=== PATIENT | female | born 1955 | race Caucasian/White ===

== ENCOUNTER 2017-01-26 13:47 | Outpatient (CLI) | payer BC ==
--- NOTE | 2017-01-26 17:39 | OP Clinic Progress Note ---
REASON FOR VISIT: Dalia Sepulveda returns for follow up of Adebayo's vasculitis. She is seeing me here in [place] due to the urgency of the matter. HISTORY OF PRESENT ILLNESS: Dalia Sepulveda is a 61-year-old white woman that I have been following since 2000. She has biopsy-proven Adebayo's vasculitis. She previously had been seen by Dr. Rojas, Dr. Owen, Dr. Sean Albert, and Dr. Huddleston. Having failed methotrexate and prednisone therapy in the past, she has received Rituxan with good resolution of her symptoms. Her last treatment was a year ago. About a week ago, the patient noticed worsening pain and swelling of her feet, an itchy skin rash, a cough productive of blood-streaked sputum, and worsening sinus congestion. She passed by my office and I put her on 30 mg of prednisone and obtained some labs. On today's visit, she tells me she is feeling somewhat improved on the prednisone. Her rash has resolved. Her foot pain is improving. She has stopped coughing up blood. Her sinuses, however, remain full with associated symptoms of fatigue and numbness and tingling of the extremities, which have been present for many years. PAST MEDICAL HISTORY: 1. Low back pain. 2. Hypertension. 3. Peripheral neuropathy. 4. Anemia. ALLERGIES: She reports allergies to: 1. Penicillin. 2. Sulfa drugs. 3. Nubain. PAST SURGICAL HISTORY: 1. Tubal ligation. 2. Lung biopsy. FAMILY HISTORY: Positive for rheumatoid arthritis. PHYSICAL EXAMINATION: General: She is in no acute distress. VITAL SIGNS: Weight: 156. Height: 5 feet 8 inches. T: 97.5, R: 18, heart rate 70, BP: 110/70. HEENT: External ears and nose are unremarkable. Sclerae are anicteric. Conjunctivae are pink. LUNGS: Clear bilaterally with no crackles or wheezing or rubs. HEART: Regular rhythm. ABDOMEN: Soft and nontender. EXTREMITIES: No significant peripheral edema of the lower extremities. SKIN: No purpura. JOINTS: No synovitis in her right or left upper extremities DIAGNOSTIC STUDIES: Labs obtained January 25, sedimentation was , antiproteinase 3 was positive over 5.9. Creatinine was 0.89. Liver functions were normal. CBC, white count was 5.5, hemoglobin 15.3, platelets are normal. Mild eosinophilia with absolute eosinophil count of 0.63. Urine showed 1+ protein and 1+ blood and negative leukocyte esterase. IMPRESSION: Adebayo's vasculitis, active with sinus, pulmonary, renal, and cutaneous involvement. We will continue prednisone 30 mg daily. We will treat with Rituxan 1 gram x2. I have asked her to contact me in 7 days after her first treatment. Thank you very much. Best regards, FLAKO
== END 2017-01-26 13:57 ==
LOC: RHEU 13:47
PROVIDERS: ATTEND Internal Medicine
DX: M31.30 Wegener's granulomatosis without renal involvement (principal)
CPT/HCPCS: 99213; 99214

== ENCOUNTER → 2017-03-30 | Outpatient (CLI) | payer BC ==
--- NOTE | 2017-03-30 13:13 | OP Clinic Progress Note ---
REASON FOR VISIT: Dalia Sepulveda returns for follow up on her Adebayo's syndrome (ICD 10, M31.30). This lady has biopsy-proven Adebayo's vasculitis with involvement of her sinuses , lungs, skin, and kidneys. She is presently on 30 mg of prednisone. She received Rituxan 1000 mg x2 at [facility] and feels significantly better. She presently has had no fevers or chills. No skin lesions. No swelling of her legs. She has no sinus drainage or pain. She is no longer coughing blood, and she has had no chest pain or shortness of breath. Furthermore, no nausea, vomiting, or diarrhea. She does feel a little anxious on the 30 mg of prednisone. PAST MEDICAL HISTORY: As above, as well as: 1. Chronic low back pain. 2. Hypertension. 3. Peripheral neuropathy. 4. Anemia. PAST SURGICAL HISTORY: 1. Lung biopsy. 2. Tubal ligation. ALLERGIES: She is allergic to: 1. Penicillin. 2. Sulfa drugs. 3. Nubain. FAMILY HISTORY: Positive for rheumatoid arthritis. PHYSICAL EXAMINATION: GENERAL: On exam, she looks well. VITAL SIGNS: Weight: 160 pounds. T: 97.5, R: 20, heart rate of 80, BP: 128/ 76. HEENT: Sclerae are anicteric. Conjunctivae are pink. No stomatitis or glossitis. LUNGS: Clear. HEART: Regular rhythm. ABDOMEN: Soft and nontender. VASCULAR: No edema or cyanosis. PERIPHERAL JOINTS: No synovitis at the DIPs, PIPs, MCPs, wrists, elbows, shoulders, hips, knees, ankles, and feet. SKIN: No rashes. No pitting edema. IMPRESSION: Adebayo's vasculitis, stable and improved. Decrease prednisone to 20 mg daily. PLAN: I will see her back in a month. We will check her labs at that time. Thank you very much. FLAKO
== END ==
LOC: RHEU 10:24
PROVIDERS: ATTEND Internal Medicine
DX: M31.30 Wegener's granulomatosis without renal involvement (principal); Z79.899 Other long term (current) drug therapy
CPT/HCPCS: 99213; 99214

== ENCOUNTER 2017-04-27 15:06 | Outpatient (CLI) | payer BC ==
--- NOTE | 2017-05-01 10:21 | OP Clinic Progress Note ---
REASON FOR VISIT: Dalia Sepulveda returns for follow up on her Adebayo's Syndrome (M31.30). She is presently on 20 mg of prednisone and doing well. She has had no sinus bleeding but just a little congestion. She is breathing well with no chest pain and no coughing up of blood. Her urine remains unchanged. PAST MEDICAL HISTORY: 1. Adebayo's Vasculitis with sinus, lungs, skin, and renal disease. 2. Chronic intractable low back pain. 3. Hypertension. 4. Peripheral neuropathy. 5. Anemia. 6. Lung biopsy. 7. Tubal ligation. ALLERGIES: 1. Penicillin. 2. Sulfa drugs. 3. Nubain. REVIEW OF SYSTEMS: She has had no fevers or chills but she has had a rash on the right nasolabial fold. It is itchy. She has been putting some topical steroids on it. It has extended down to the right side of her mouth and she has a little burning sensation at her left frontal scalp with some small lesions. They have been present for about a month. PHYSICAL EXAMINATION: General: On exam, she always looks well and in no distress. Vital Signs: Weight: 163. T: 96.6, R: 20, heart rate 76, BP: 130/74. HEENT: Conjunctivae are pink. No stomatitis or glossitis. She has an acneiform eruption on right nasolabial fold and a little bit on the forehead and chin. Neck: No cervical nodes. Lungs: Clear with no crackles or wheezing. Heart: Regular rhythm. Abdomen: Soft. Skin: The rest of the skin exam is unremarkable. Vascular: No edema or cyanosis. Joints: Joints are unremarkable. IMPRESSION: 1. Adebayo's vasculitis, improved. 2. Steroid-induced acne. PLAN: 1. I am decreasing her prednisone to 10 mg daily for a month and then 5 mg a day. 2. Today, we will recheck her labs including ANCA's, urinalysis, CBC, CMP, and sedimentation rate. 3. I am putting the patient on doxycycline 100 mg twice a day for 7 days. She will call sooner if she does not improve. May need a consultation with Dermatology. 4. I will see her back in 2 months. Thank you very much. Best regards, FLAKO
== END 2017-04-27 15:07 ==
LOC: RHEU 15:06
PROVIDERS: ATTEND Internal Medicine
DX: M31.30 Wegener's granulomatosis without renal involvement (principal)
CPT/HCPCS: 99213

== ENCOUNTER 2017-04-30 10:39 | Outpatient (CLI) | payer BC ==
[2017-04-30 11:04] LABS: BASOPHILS % 1.1 (0.0-1.5); EOSINOPHILS % 5.3 % (0.0-6.8); MEAN CORPUSCULAR HEMOGLOBIN 29.7 pg (28.0-34.0); MEAN CORPUSCULAR VOLUME 94.2 fl (80.0-100.0); MONOCYTES % 10.7 % (0.0-11.0); NEUTROPHILS # 4.6 # k/uL (1.4-7.7)
[2017-04-30 11:11] LABS: APPEARANCE,URINE Clear (CLEAR); COLOR,URINE Yellow (YELLOW); OCCULT BLOOD,URINE Negative (NEGATIVE); UROBILINOGEN URINE 0.2 Eu (0.2-1.0)
[2017-04-30 11:52] LABS: eGFR (African) > 60; eGFR (Non-African) > 60
== END 2017-04-30 10:40 ==
LOC: LAB 10:39
PROVIDERS: ATTEND Internal Medicine
DX: M31.30 Wegener's granulomatosis without renal involvement (principal)
CPT/HCPCS: 36415; 80053; 81002; 83516; 85025; 85651

== ENCOUNTER 2017-12-28 08:45 | Outpatient (CLI) | payer BC ==
[2017-12-28 10:04] LABS: BASOPHILS % 0.8 (0.0-1.5); EOSINOPHILS % 18.7 % (0.0-6.8); MEAN CORPUSCULAR HEMOGLOBIN 30.4 pg (28.0-34.0); MEAN CORPUSCULAR VOLUME 90.6 fl (80.0-100.0); MONOCYTES % 6.3 % (0.0-11.0)
[2017-12-28 10:14] LABS: APPEARANCE,URINE CLEAR (CLEAR); COLOR,URINE YELLOW (YELLOW); OCCULT BLOOD,URINE TRACE-INTACT (NEGATIVE); PH URINE 7.5 (5.0 - 8.0); UROBILINOGEN URINE 0.2 Eu (0.2-1.0)
[2017-12-28 10:15] LABS: eGFR (African) > 60; eGFR (Non-African) > 60
--- NOTE | 2017-12-28 10:30 | OP Clinic Progress Note ---
REASON FOR VISIT: Dalia Sepulveda was last seen in April 2017. She has Adebayo's syndrome (M31.30 ). For the past week, she has felt ill with increasing fatigue, joint pain, and she has developed mouth sores and some swelling of her legs and she is coughing up pinkish sputum. Otherwise, no fever. She has had no chest pain. She has no shortness of breath. No nausea vomiting, or diarrhea. No numbness or tingling of her extremities. She has not noted any change in her urine. PAST MEDICAL HISTORY: 1. Adebayo's vasculitis with sinus, lungs, skin and renal disease. Previous treatment with Rituxan. 2. Chronic intractable low back pain. 3. Hypertension. 4. Peripheral neuropathy. 5. Anemia. 6. Tubal ligation. 7. Past lung biopsy. ALLERGIES: 1. Penicillin. 2. Sulfa drugs. 3. Nubain. REVIEW OF SYSTEMS: As above. PHYSICAL EXAMINATION: GENERAL: She looks ill. VITAL SIGNS: Height: 5 feet 8 inches. Weight: 179 pounds. T: 97.2, R: 20 , heart rate 83, BP: 120/85. HEENT: External ears and nose are unremarkable. She has stomatitis. No gingivitis. Good salivary pool. No parotid or submandibular swelling. LYMPHATIC: No submental nodes. No cervical nodes. LUNGS: Clear with no crackles or wheezing. HEART: Regular rate and rhythm. ABDOMEN: Soft and nontender. VASCULAR: No edema. No cyanosis. SKIN: No rashes. EXTREMITIES: She has no calf tenderness. Negative David's bilaterally. JOINTS: No synovitis of the hands, wrists, or legs. IMPRESSION: 1. Hemoptysis. 2. Cough. 3. Adebayo's vasculitis, active. PLAN: 1. I am putting her on 30 mg daily of prednisone. 2. I am checking her labs including ANCA's, urinalysis, CBC, CMP, and sedimentation rate. 3. We will get a chest x-ray today. 4. She will contact me on Sunday. I gave her my cell number. 5. Depending on the above results, we will retreat with Rituxan 1 gram day zero, 7, 14, and 21. Thank you very much. cc: Dr. Huang ARRIOLA
--- NOTE | 2017-12-28 20:28 | Diagnostic Imaging Report ---
NIVIA RANDLE [facility] [address] [facility] [address] [place], [place]. [address] Report Submission Date: Dec 28, 2017 9:59:49 AM CDT Patient Study Name: LARRY AMEZQUITA Date: Dec 28, 2017 9:38:17 AM CDT Modality Type: DX Gender: F Description: CHEST : 51 Institution: [facility] Physician: NIVIA RANDLE PA and lateral chest History: Adebayo's granulomatosis. Cough PA and lateral chest dated December 28, 2017 demonstrates a normal cardiomediastinal silhouette. There is mild aortic atherosclerosis. Pulmonary vascularity is normal. There is no confluent infiltrate or pleural effusion. Impression: No active disease. Electronically signed on Dec 28, 2017 9:59:49 AM CDT by: Genesis ARRIOLA
== END 2017-12-28 12:30 ==
LOC: RHEU 08:45
PROVIDERS: ATTEND Internal Medicine
DX: R04.2 Hemoptysis (principal); R05 Cough; M31.31 Wegener's granulomatosis with renal involvement
CPT/HCPCS: 36415; 71046; 80053; 81002; 85025; 85651; 99213; 99214

== ENCOUNTER 2018-01-01 09:17 | Outpatient (CLI) | payer BC ==
--- NOTE | 2018-01-01 17:13 | Diagnostic Imaging Report ---
NIVIA RANDLE [facility] [address] [facility] [address] [place] [id number]. [id number] Report Submission Date: Jan 01, 2018 4:53:10 PM CDT Patient Study Name: LARRY AMEZQUITA Date: Jan 01, 2018 3:39:20 PM CDT Modality Type: CT\SR Gender: F Description: CT PE CHEST : 51 Institution: [facility] Physician: NIVIA RANDLE CT pulmonary angiography Clinical history: Chest pain and hemoptysis. Rule out pulmonary embolus. Technique: CT pulmonary angiography is performed with intravenous infusion of contrast. Sliding coronal and sagittal MIP reconstructions were performed by the technologist. Findings: There are patchy infiltrates in both lower lobes, right middle lobe and lingula. There is relative sparing of the upper lobes. Central airways are patent. There is no pleural effusion or significant pleural thickening. Vascular structures enhance normally. There is no filling defect in the pulmonary arteries or vascular cut off to suggest the diagnosis of pulmonary embolism. Impression: 1. No pulmonary embolus. 2. Patchy bilateral infiltrates worse in the lower lobes. Electronically signed on Jan 01, 2018 4:53:10 PM CDT by: Yevgeniy ARRIOLA
== END 2018-01-01 09:19 ==
LOC: RAD 09:17
PROVIDERS: ATTEND Internal Medicine
DX: R04.2 Hemoptysis (principal)
CPT/HCPCS: 71275

== ENCOUNTER 2018-02-28 09:38 | Outpatient (CLI) | payer OTHER | END 2018-02-28 09:40 | LOC: RT 09:38 | PROVIDERS: ATTEND Family Medicine | DX: R07.9 Chest pain, unspecified (principal) ==

== ENCOUNTER 2018-04-15 09:41 | Outpatient (CLI) | payer MEDICARE, OTHER ==
[2018-04-15 10:01] LABS: MEAN CORPUSCULAR HEMOGLOBIN 30.2 pg (28.0-34.0)
[2018-04-15 10:02] LABS: BASOPHILS % 0.4 (0.0-1.5); EOSINOPHILS % 1.9 % (0.0-6.8); MONOCYTES % 8.4 % (0.0-11.0); NEUTROPHILS # 5.3 # k/uL (1.4-7.7)
[2018-04-15 10:16] LABS: eGFR (Non-African) > 60
== END 2018-04-15 09:42 ==
LOC: LAB 09:41
PROVIDERS: ATTEND Family Medicine
DX: M31.30 Wegener's granulomatosis without renal involvement (principal); Z79.899 Other long term (current) drug therapy; E03.9 Hypothyroidism, unspecified
CPT/HCPCS: 36415; 80053; 83036; 84443; 85025

== ENCOUNTER 2019-05-15 13:53 | Outpatient (CLI) | payer MEDICARE, OTHER ==
[2019-05-15 15:23] LABS: eGFR (Non-African) > 60
[2019-05-15 15:24] LABS: HDL 70 mg/dL (>40)
== END 2019-05-15 13:58 ==
LOC: LAB 13:53
PROVIDERS: ATTEND Family Medicine
DX: E78.2 Mixed hyperlipidemia (principal); E03.9 Hypothyroidism, unspecified; R30.0 Dysuria
CPT/HCPCS: 36415; 80053; 80061; 84443; 87086; 87186

== ENCOUNTER 2019-06-10 10:49 | Outpatient (CLI) | payer MEDICARE, OTHER ==
[2019-06-10 11:23] LABS: BASOPHILS % 0.9 % (0.0-1.5); NEUTROPHILS # 5.3 # k/uL (1.4-7.7)
[2019-06-10 11:56] LABS: eGFR (Non-African) > 60
[2019-06-10 15:56] LABS: APPEARANCE,URINE CLEAR (CLEAR); COLOR,URINE YELLOW (YELLOW)
[2019-06-10 15:57] LABS: OCCULT BLOOD,URINE TRACE (NEGATIVE)
[2019-06-10 15:59] LABS: UROBILINOGEN URINE 0.2 Eu (0.2-1.0)
== END 2019-06-10 10:54 ==
LOC: LAB 10:49
PROVIDERS: ATTEND Internal Medicine
DX: M31.30 Wegener's granulomatosis without renal involvement (principal); I77.6 Arteritis, unspecified
CPT/HCPCS: 36415; 80053; 81002; 85025; 85651